=== PATIENT | female | born 1955 | race African-American/Black ===

== ENCOUNTER 2016-08-07 20:44 | Emergency (ER) | payer MEDICARE, MEDICAID ==
[~2016-08-07 20:44] MED LIST: 1-ME1LIQ PO; CLON-481 PO; CLON.2 PO; CYCL1SOL LEFT EYE; HYDR25TA35 PO; LORTA5 PO; PRED1%O LEFT EYE; SM A81CH CHEW
[2016-08-07 20:46] VITALS: BP 168/95; PULSE 100; RESP 18; TEMP 100.3; O2SAT 96
== END 2016-08-07 21:30 | disposition left against medical advice (07) ==
LOC: NED 20:44
DX: J00 Acute nasopharyngitis [common cold] (principal); Z53.21 Procedure and treatment not carried out due to patient leaving prior to being seen by health care provider
CPT/HCPCS: 99281

== ENCOUNTER → 2016-09-28 | Outpatient (CLI) | payer MEDICARE, MEDICAID ==
[2016-09-28 09:36] LABS: ALT (GPT) 31 U/L (10-53); ANION GAP 8 MEQ/L (5-15); BICARBONATE 22.4 MEQ/L (21.0-32.0); BLOOD UREA NITROGEN 25 MG/DL (7-18); CHLORIDE 110 MEQ/L (98-107); GLUCOSE,FASTING 94 MG/DL (74-99); POTASSIUM 4.2 MEQ/L (3.5-5.1); SODIUM (NA) 140 MEQ/L (136-145)
[2016-09-28 09:39] LABS: ALKALINE PHOSPHATASE 52 U/L (45-117); AST (GOT) 39 U/L (15-37); GLOMERULAR FILTRATION RATE 29 ML/MIN (>89); TOTAL BILIRUBIN ADULT 0.4 MG/DL (0.2-1.0)
== END ==
LOC: CLAB 08:34
PROVIDERS: ATTEND General Practice
DX: I10 Essential (primary) hypertension (principal)
CPT/HCPCS: 36415; 80053